=== PATIENT | male | born 1985 | race Caucasian/White ===

== ENCOUNTER 2024-05-24 03:45 | Emergency (ER) | payer MEDICAID ==
[2024-05-24 04:15] LABS: BASOPHILS PERCENT AUTO 0.3 % (0.0-1.0); EOSINOPHILS PERCENT AUTO 3.6 % (1.0-3.0); HEMATOCRIT 43.7 % (40.0-54.0); HEMOGLOBIN 14.7 g/dL (14.0-18.0); MEAN CORPUSCULAR HEMOGLOBIN 32.3 pg (27.0-34.0); MEAN CORPUSCULAR HGB CONC 33.6 g/dL (33.0-35.0); MONOCYTES PERCENT AUTO 5.8 % (2-8); NEUTROPHILS PERCENT AUTO 58.3 % (42.2-75.2); PLATELET COUNT,PLT 169 10^3/uL (150-450); RED BLOOD CELL COUNT 4.55 10^6/uL (4.6-6.2); WHITE BLOOD CELL COUNT,WBC 10.1 10^3/uL (5.0-10.0)
[2024-05-24] MEDS: Thiamine 100 MG in Sodium Chloride 0.9% 100 ML IV ONE (04:25)
[2024-05-24] MEDS: Ketorolac 30 MG/ML SDV IVPUSH ONE (04:25)
[2024-05-24] MEDS: Sodium Chloride 0.9% 1,000 ML IV ONE (04:25)
[2024-05-24 04:37] LABS: A/G RATIO 0.9; ALBUMIN 3.7 g/dL (3.4-5.0); ANION GAP 17.8 mEq/L (7-13); BILIRUBIN TOTAL 0.3 mg/dL (0.2-1.0); BUN/CREATININE RATIO 16.2 (No establ ref range); CREATININE 0.68 mg/dL (0.70-1.30); EST CRCL DRUG DOSING (CG) 134.22 mL/min; POTASSIUM,K 3.8 mmol/L (3.5-5.1)
[2024-05-24 04:48] LABS: PROTHROMBIN TIME 10.7 SEC (9.0-12.0)
== END 2024-05-24 07:45 | disposition home or self-care (01) ==
LOC: DL.ED 03:45
DX: R07.89 Other chest pain (principal); R07.81 Pleurodynia; I10 Essential (primary) hypertension; Z88.6 Allergy status to analgesic agent
CPT/HCPCS: 36415; 71045; 80053; 80307; 82550; 83605; 83690; 83735; 84484; 85025; 85610; 93005; 96365; 96375; 99285; J1885; J3411; J3490; J7030

== ENCOUNTER 2024-06-03 02:33 | Emergency (ER) | payer MEDICAID ==
[2024-06-03] MEDS: Nicotine Polacrilex 2 MG Gum CHEW ONE (04:41)
[2024-06-03] MEDS: Nicotine 21 MG/24 Hr Patch TRDERM ONE (05:01)
== END 2024-06-03 08:02 | disposition home or self-care (01) ==
LOC: DL.ED 02:33
DX: R07.81 Pleurodynia (principal); M25.521 Pain in right elbow; M25.551 Pain in right hip; I10 Essential (primary) hypertension; F17.210 Nicotine dependence, cigarettes, uncomplicated; Z88.6 Allergy status to analgesic agent
CPT/HCPCS: 71100; 73080; 73521; 99283; A9270

== ENCOUNTER 2024-06-04 06:58 | Emergency (ER) | payer MEDICAID ==
[2024-06-04 07:58] LABS: BASOPHILS PERCENT AUTO 0.6 % (0.0-1.0); EOSINOPHILS PERCENT AUTO 4.1 % (1.0-3.0); HEMATOCRIT 37.8 % (40.0-54.0); HEMOGLOBIN 12.6 g/dL (14.0-18.0); LYMPHOCYTES PERCENT AUTO 31.8 % (20.5-50.1); MEAN CORPUSCULAR HEMOGLOBIN 32.8 pg (27.0-34.0); MEAN CORPUSCULAR HGB CONC 33.3 g/dL (33.0-35.0); MEAN CORPUSCULAR VOLUME 98.4 fL (80-100); NEUTROPHILS PERCENT AUTO 54.5 % (42.2-75.2); PLATELET COUNT,PLT 150 10^3/uL (150-450); RED BLOOD CELL COUNT 3.84 10^6/uL (4.6-6.2); WHITE BLOOD CELL COUNT,WBC 7.1 10^3/uL (5.0-10.0)
[2024-06-04 08:00] LABS: AMPHETAMINES,URINE NEGATIVE (NEGATIVE); BARBITURATES,URINE NEGATIVE (NEGATIVE); BENZODIAZEPINE,URINE NEGATIVE (NEGATIVE); MDMA (ECSTASY), URINE NEGATIVE (NEGATIVE); METHADONE,URINE NEGATIVE (NEGATIVE); METHAMPHETAMINES,URINE NEGATIVE (NEGATIVE); OPIATES,URINE NEGATIVE (NEGATIVE); OXYCODONE,URINE NEGATIVE (NEGATIVE); PHENCYCLIDINE,URINE NEGATIVE (NEGATIVE); TCA,URINE NEGATIVE (NEGATIVE)
[2024-06-04 08:14] LABS: CALCIUM 8.5 mg/dL (8.5-10.1); CREATININE 0.69 mg/dL (0.70-1.30); EST CRCL DRUG DOSING (CG) 132.27 mL/min
== END 2024-06-04 09:19 | disposition home or self-care (01) ==
LOC: DL.ED 06:58
DX: F10.10 Alcohol abuse, uncomplicated (principal); I10 Essential (primary) hypertension; F17.210 Nicotine dependence, cigarettes, uncomplicated; Y90.8 Blood alcohol level of 240 mg/100 ml or more; Z88.5 Allergy status to narcotic agent
CPT/HCPCS: 36415; 80048; 80305-QW; 80307; 85025; 99284

== ENCOUNTER 2024-06-04 20:44 | Emergency (ER) | payer MEDICAID ==
[2024-06-04] MEDS: MVI, Adult with Vitamin K 10 ML, Folic Acid 1 MG, Thiamine 100 MG in Lactated Ringers 1... IV ONE (21:12)
[2024-06-04 21:20] LABS: BASOPHILS PERCENT AUTO 0.7 % (0.0-1.0); EOSINOPHILS PERCENT AUTO 4.5 % (1.0-3.0); HEMATOCRIT 40.5 % (40.0-54.0); HEMOGLOBIN 13.4 g/dL (14.0-18.0); LYMPHOCYTES PERCENT AUTO 35.3 % (20.5-50.1); MEAN CORPUSCULAR HEMOGLOBIN 32.1 pg (27.0-34.0); MEAN CORPUSCULAR HGB CONC 33.1 g/dL (33.0-35.0); MEAN CORPUSCULAR VOLUME 96.9 fL (80-100); MONOCYTES PERCENT AUTO 7.8 % (2-8); NEUTROPHILS PERCENT AUTO 51.7 % (42.2-75.2); PLATELET COUNT,PLT 157 10^3/uL (150-450); RED BLOOD CELL COUNT 4.18 10^6/uL (4.6-6.2); WHITE BLOOD CELL COUNT,WBC 6.9 10^3/uL (5.0-10.0)
[2024-06-04] MEDS: Iopamidol 612 MG/ML 100 ML Bottle IVPUSH ONE (21:21)
[2024-06-04 21:37] LABS: APPEARANCE,URINE CLEAR (CLEAR); BILIRUBIN,URINE NEGATIVE (NEGATIVE); COLOR,URINE YELLOW (YELLOW); GLUCOSE,URINE NEGATIVE (NEGATIVE); KETONES,URINE NEGATIVE (NEGATIVE); LEUKOCYTE ESTERASE,URINE NEGATIVE (NEGATIVE); NITRITE,URINE NEGATIVE (NEGATIVE); OCCULT BLOOD,URINE NEGATIVE (NEGATIVE); PH,URINE 5.5 (5.0-9.0); PROTEIN,URINE NEGATIVE (NEGATIVE); UROBILINOGEN,URINE 0.2 mg/dL (0.2-1.0)
[2024-06-04 21:40] LABS: A/G RATIO 0.9; ALBUMIN 3.6 g/dL (3.4-5.0); ANION GAP 16.2 mEq/L (7-13); BILIRUBIN TOTAL 0.2 mg/dL (0.2-1.0); BUN/CREATININE RATIO 16.7 (No establ ref range); CALCIUM 8.3 mg/dL (8.5-10.1); CREATININE 0.66 mg/dL (0.70-1.30); EST CRCL DRUG DOSING (CG) 148.26 mL/min; MAGNESIUM 1.9 mg/dL (1.8-2.4); POTASSIUM,K 4.2 mmol/L (3.5-5.1); PROTEIN TOTAL,TP 7.8 g/dL (6.4-8.2)
[2024-06-04 21:41] LABS: AMPHETAMINES,URINE NEGATIVE (NEGATIVE); BARBITURATES,URINE NEGATIVE (NEGATIVE); BENZODIAZEPINE,URINE NEGATIVE (NEGATIVE); MDMA (ECSTASY), URINE NEGATIVE (NEGATIVE); METHADONE,URINE NEGATIVE (NEGATIVE); METHAMPHETAMINES,URINE NEGATIVE (NEGATIVE); OPIATES,URINE NEGATIVE (NEGATIVE); OXYCODONE,URINE NEGATIVE (NEGATIVE); PHENCYCLIDINE,URINE NEGATIVE (NEGATIVE); TCA,URINE NEGATIVE (NEGATIVE)
== END 2024-06-05 04:53 | disposition home or self-care (01) ==
LOC: DL.ED 20:44
DX: R07.81 Pleurodynia (principal); F10.129 Alcohol abuse with intoxication, unspecified; I10 Essential (primary) hypertension; F17.210 Nicotine dependence, cigarettes, uncomplicated; Z88.6 Allergy status to analgesic agent; Y90.8 Blood alcohol level of 240 mg/100 ml or more
CPT/HCPCS: 36415; 71260; 74177; 80053; 80305; 80307; 81003; 83735; 84484; 85025; 93005; 93010; 96365; 96366; 99284; J3411; J7120; Q9967; J3490

== ENCOUNTER 2024-06-05 14:13 | Emergency (ER) | payer MEDICAID ==
[2024-06-05 14:38] LABS: BASOPHILS PERCENT AUTO 0.6 % (0.0-1.0); EOSINOPHILS PERCENT AUTO 2.2 % (1.0-3.0); HEMOGLOBIN 12.1 g/dL (14.0-18.0); LYMPHOCYTES PERCENT AUTO 22.4 % (20.5-50.1); MEAN CORPUSCULAR HEMOGLOBIN 32.7 pg (27.0-34.0); MEAN CORPUSCULAR HGB CONC 33.6 g/dL (33.0-35.0); MEAN CORPUSCULAR VOLUME 97.3 fL (80-100); MONOCYTES PERCENT AUTO 8.3 % (2-8); NEUTROPHILS PERCENT AUTO 66.5 % (42.2-75.2); PLATELET COUNT,PLT 125 10^3/uL (150-450); WHITE BLOOD CELL COUNT,WBC 5.1 10^3/uL (5.0-10.0)
[2024-06-05 15:06] LABS: A/G RATIO 0.9; ALANINE AMINOTRANSFERASE,ALT 202 U/L (16-63); ALBUMIN 3.4 g/dL (3.4-5.0); ALKALINE PHOSPHATASE 315 U/L (46-116); ANION GAP 15.7 mEq/L (7-13); ASPARTATE AMNIOTRANSFERASE,AST 180 U/L (15-37); BILIRUBIN TOTAL 0.4 mg/dL (0.2-1.0); BLOOD UREA NITROGEN,BUN 12 mg/dL (7-18); BUN/CREATININE RATIO 15.2 (No establ ref range); CALCIUM 8.2 mg/dL (8.5-10.1); CARBON DIOXIDE,CO2 26 mmol/L (21-32); CHLORIDE,CL 103 mmol/L (98-107); CREATININE 0.79 mg/dL (0.70-1.30); ESTIMATED GFR 117 mL/min (>=60); GLUCOSE RANDOM 117 mg/dL (70-99); LIPASE 32 U/L (16-77); POTASSIUM,K 3.7 mmol/L (3.5-5.1); PROTEIN TOTAL,TP 7.3 g/dL (6.4-8.2); SODIUM,NA 141 mmol/L (136-145); TSH ULTRASENSITIVE 1.09 uIU/mL (0.36-3.74)
[2024-06-05 15:07] LABS: ETHANOL BLOOD MEDICAL < 3 mg/dL (0)
[2024-06-05] MEDS: Ondansetron 4 MG Tab.DIS PO ONE (15:58)
[2024-06-05] MEDS: GI Cocktail Oral Solution 30 ML PO ONE (16:02)
[2024-06-05] MEDS: LORazepam 0.5 MG Tab PO ONE (16:07)
== END 2024-06-05 16:36 | disposition home or self-care (01) ==
LOC: DL.ED 14:13
DX: F10.10 Alcohol abuse, uncomplicated (principal); I10 Essential (primary) hypertension; Z88.6 Allergy status to analgesic agent
CPT/HCPCS: 36415; 80053; 80307; 83690; 84443; 85025; 99284; A9270